=== PATIENT | male | born 1975 | race Caucasian/White ===

== ENCOUNTER 2020-08-01 10:07 | Day surgery (SDC) | payer OTHER ==
[2020-08-01] MEDS ORDERED: BUPIVACAINE 0.25% PF 30 ML VIAL ONE (10:10)
[2020-08-01] MEDS ORDERED: LIDOCAINE 1%-EPI 1:100000 20 ML MDV ONE (10:10)
[2020-08-01] MEDS ORDERED: cefTRIAXone 2 GM VIAL ONE ×2 (10:11→10:12)
[2020-08-01] MEDS ORDERED: SCOPOLAMINE PATCH TOP ONE (10:11)
[2020-08-01] MEDS ORDERED: LACTATED RINGERS 1,000 ML IV ONE ×2 (10:22→15:43)
--- NOTE | 2020-08-01 11:13 | ANESTHESIA ---
Pre-Anesthesia VS, & Labs - Diagnosis AC Joint arthritis, Right carpal tunnel syndrome - Procedure right open distal clavicle excision, right carpal tunnel release Vital Signs: Temp Pulse Resp BP Pulse Ox 36.6 C 62 16 120/79 98 08/01/20 10:22 08/01/20 10:22 08/01/20 10:22 08/01/20 10:22 08/01/20 10:22 Height: 6 ft Weight (kg): 104 kg Body Mass Index: 31.1 BMI Classification: Obese - NPO >8 hours Home Medications and Allergies Home Medications: Ambulatory Orders Naproxen [Naprosyn] 500 mg PO BID PRN 07/29/20 Naproxen [Naprosyn] 500 mg PO BID PRN 07/29/20 Allergies/Adverse Reactions: Allergies Allergy/AdvReac Type Severity Reaction Status Date / Time No Known Drug Allergies Allergy Verified 08/01/20 11:02 Anes History & Medical History - Anesthetic History Anesthesia Complications: reports: Post-Operative Nausea/Vomiting - Medical History Cardiovascular: reports: None Pulmonary: reports: Sleep apnea (does not use cpap) Gastrointestinal: reports: None Urinary: reports: None Neuro: reports: None Musculoskeletal: reports: Other Endocrine/Autoimmune: reports: None Blood Disorders: reports: None Skin: reports: None Smoking Status: Never smoker Psychosocial: reports: Alcohol (Drinks 3-4 times per week.) History of Cancer?: No - Surgical History General: Colonoscopy, EGD Eyes Ears Nose Throat (EENT): Other (septoplasty) Orthopedic: Other Exam General: Alert, Oriented x3, Cooperative, No acute distress Dental: WNL Mouth Openin Fingerbreadth Neck Mobility: Normal Mallampati classification: I, II Thyromental Distance: 4-6 cm Mental/Cognitive Status: Alert/Oriented X3, Normal for patient Plan Anesthesia Type: General, Supraclavicular Block ( right, possible), Other (possible right superficial cervical block) Regional Block: Per Surgeon's request for Post Op pain control Consent for Procedure(s) Verified and Reviewed: Yes Code Status: Attempt Resuscitation ASA classification: 2-Mild systemic disease Is this case an emergency?: No
[2020-08-01] MEDS ORDERED: ONDANSETRON 4 MG/2 ML VIAL IVP PRN ×2 (11:48→15:42)
[2020-08-01] MEDS ORDERED: ATROPINE ABBOJECT 1 MG/10 ML SYRINGE IVP PRN (11:48)
[2020-08-01] MEDS ORDERED: NALOXONE 0.4 MG/ML VIAL IVP PRN (11:48)
[2020-08-01] MEDS ORDERED: METOCLOPRAMIDE 10 MG/2 ML VIAL IVP PRN (11:48)
[2020-08-01] MEDS ORDERED: ePHEDrine 50 MG/ML VIAL IVP PRN (11:48)
[2020-08-01] MEDS ORDERED: LACTATED RINGERS 1,000 ML IV SCH (12:00)
[2020-08-01] MEDS ORDERED: cefTRIAXone 2 GM in SODIUM CHLORIDE 0.9% MINIBAG 100 ML IV ONE (13:30)
[2020-08-01] MEDS ORDERED: BUPIVACAINE 0.25% PF 30 ML VIAL SUBQ ONE ×2 (13:50)
[2020-08-01] MEDS ORDERED: LIDOCAINE 1%-EPI 1:100000 20 ML MDV SUBQ ONE ×2 (13:50)
[2020-08-01] MEDS ORDERED: oxyCODONE 5 MG TABLET PO PRN (15:42)
[2020-08-01] MEDS: fentaNYL 100 MCG/2 ML VIAL IVP PRN ×5 (15:47→16:19)
[2020-08-01] MEDS ORDERED: fentaNYL 100 MCG/2 ML VIAL ONE ×2 (15:55→16:21)
--- NOTE | 2020-08-01 16:03 | OPERATIVE REPORT ---
Operative Report - General Procedure Date: 08/01/20 - Other Other Information/Narrative: Date of Procedure: 01 August 2020 Planned Procedure: Right open carpal tunnel release, right open distal clavicle excision Pre-op diagnosis: Right carpal tunnel syndrome, right AC joint arthritis Procedure performed: Right open carpal tunnel release, right open distal clavicle excision Post-op diagnosis: Right carpal tunnel syndrome, right AC joint arthritis Primary Surgeon: RAAD REYES Secondary Surgeon: Anesthesia: General with regional block EBL: 65ml total (50 distal clavicle, 15 carpal tunnel) Tourniquet: 12 minutes, right arm at 250mmHg. Specimen(s) Information: None Complication(s): None Condition: Stable to recovery Indications for Surgery: The patient is a 45-year-old [id number] male with bilateral hand numbness and tingling in a median nerve distribution. Clinical exam and EMG were consistent with bilateral carpal tunnel syndrome. He had concomitant focal pain to the right acromioclavicular joint, MRI demonstrated significant periarticular increased T2 signal and edema consistent with arthritic changes. Radiographs demonstrated some osteolysis and widening of the distal clavicle. They had failed non-operartive management and desired surgical intervention. Risks of surgery were discussed to include bleeding, infection, postoperative stiffness, damage to nerves (including the median nerve and recurrent motor branch to the thenar musculature), vessels, tendons, ligaments, anesthesia complications to include medication side effects and allergic reactions, blood clot, stroke, heart attack and even . After a discussion, they wished to proceed. Findings: Thickened transverse carpal ligament, hypertrophic distal clavicle. Descriptions of Procedure: The patient was met in the Preoperative Holding Area, at which time preoperative paperwork was confirmed. The right volar wrist and right distal clavicle was signed. Anesthesia met with the patient and performed regional anesthesia in preparation for the distal clavicle excision. The patient was then brought to Main Operating Room, placed supine on the Operating Room table, at which time pre procedure timeout was conducted to confirm correct patient, correct extremi ty and correct procedure and also to confirm presence and sterility of all required equipment and to confirm that antibiotics were being administered in the form of 2g of intravenous Rocephin. After this was confirmed, general anesthesia was induced. The operative extremity was then prepped and draped in the normal sterile fashion after a well-padded tourniquet was placed on the proximal arm. A final timeout was conducted to confirm the correct patient, correct extremity and correct procedure and to confirm that antibiotics had been administered within 30 minutes of incision time. The operative extremity was then exsanguinated with an Esmarch bandage and tourniquet inflated to 250mmHg. Kaminski's cardinal line, and the proximal projection of the radial border of the fourth digit, the hook of hamate and pisiform were marked on the hand. A 3cm longitudinal incision was made with a #15 blade through skin and subcutaneous tissue. Dissection was further carried out with tenotomy scissors. Small crossing vessels were coagulated with bipolar electrocautery, the palmar fascia was exposed, and split longitudinally in line with its fibers, the fat was retracted ulnarly, and the transverse carpal ligament was exposed. A 15 blade was used to make a small incision in the transverse carpal ligament, and then a small mosquito clamp was introduced directly deep to the ligament above the contents of the carpal tunnel to gently free off any adhesions between the deep surface of the transverse carpal ligament and the median nerve. Dissection was carried distally under direct visualization, releasing the transverse carpal ligament until the palmar fat was was visualized. A [place] was passed to ensure that there were no remaining tight bands constricting the nerve. Attention was then turned proximally, and a [place] elevator was passed deep to the transverse carpal ligament and antebrachial fascia, and these were incised in line with the nerve approximately 2 cm proximal to the distal wrist crease. This was performed under direct visualization. Again [place] examination of the proximal extent of the release was performed to ensure no tight bands or constrictive points remained over the nerve. Satisfied that the carpal tunnel had been completely released, the wound was irrigated, and the tourniquet was let down. Pressure was held on the incision for approximately 5 minutes, and bleeding points were then cauterized with bipolar electrocautery. After ensuring good hemostasis, the wound was again irrigated and then closed using 4-0 nylon in interrupted horizontal mattress fashion. 10 mL of quarter percent Marcaine plain, was injected into the yola-incisional soft tissues. The wound was then dressed with Xeroform, 2 x 2 gauze and a Tegaderm. The drapes were taken down, and the patient was placed in a modified beach chair position. The right upper extremity was then prepped and draped in usual sterile fashion for shoulder surgery. A stockinette was placed over the distal arm and hand. Following prepping and draping, the acromion, clavicle and planned incision (approximately 4 cm in line with the center of the clavicle) were marked out on the skin using surgical marker. Ioban was placed over the surgical site. A surgical timeout was again conducted to confirm the correct patient extremity procedure and availability of equipment. Once this was comple johanna, the surgical site was infiltrated with 5 mL of 1% lidocaine with epinephrine to assist with hemostasis. The incision was made sharply through the skin and subcutaneous tissues with a 10 blade, followed by bovie electrocautery. Metzenbaum scissors were used to develop anterior and posterior flaps at the level of the fascia. A spinal needle confirmed location of the joint. Bovie electrocautery was used to incise through the fascial layer onto the surface of the clavicle, and then a manuel elevator was used to sub periosteally elevate the tissue anteiorly and posteriorly. Baby Hohmann retractors were placed around the distal clavicle. The degenerated intra-articular disc was removed using a rongeur. The joint space was defined using a rongeur. The Bovie was used to mi out the planned resection on the distal clavicle, and then an oscillating saw was used to excise a 4mm slice of bone from the distal clavicle. Rongeurs were further used to remove any remaining disc material and to contour the bone. I placed my finger into the improved joint space and took the arm through range of motion to include include full forward flexion, abduction and cross body adduction. There was some slight pinching in the ABER position, so the baby Hohmann's were replaced, and the oscillating saw was used to resect an additional 2 mm of bone. Rongeurs and rasp were used to contour the remaining bony ends, and the wound was irrigated. The arm was again taken through full range of motion, with less impingement in the ABER position. The wound was irrigated. The deep fascial/periosteal layer was closed using 0 Vicryl in interrupted [id number] fashion. Following repair of this layer the wound was again irrigated, and the platysma and deep dermal layer was closed using 0 Vicryl in interrupted fashion. The subcutaneous tissues were closed using 2-0 Vicryl in interrupted fashion, and the skin was closed with a running subcuticular 4-0 Monocryl. This incision was reinforced with Mastisol and Steri-Strips. An additional 10 mL of quarter percent Marcaine plain was injected into the yola- incisional soft tissues. Xeroform gauze was placed, followed by 4 x 4 gauze and OpSite dressing. The drapes were taken down, the arm was placed in a shoulder immobilizer. Anesthesia was reversed, he was extubated, awakened and transferred to the recovery room in stable condition. The patient was then awakened from general anesthesia without complication, brought to the Post Anesthesia Care for further recovery. Postoperative Plan: 1. The patient will be discharged from the Same Day Surgery Unit when discharge criteria are met. 2. The patient will use a sling for comfort, with no active motion of the shoulder above the horizon. The dressings will remain in place for 3 days, afterwards they can be taken down. They can begin gentle wrist range of motion on postoperative day #1 or #2 as pain allows. 3. The patient will follow up in 1 to 2-weeks for suture removal. 4. Expect return to full duty in 6-8 weeks, they may have wrist stiffness postoperatively.
[2020-08-01] MEDS ORDERED: oxyCODONE 5 MG TABLET ONE (16:50)
[2020-08-01 17:02] VITALS: BP 114/74
--- NOTE | 2020-08-01 17:25 | ANESTHESIA POST OP EVALUATION ---
Anesthesia Post Eval - Post Anesthesia Eval Vitals: Last Vital Signs Temp 36.2 C L 08/01/20 16:25 Pulse 76 08/01/20 17:00 Resp 22 08/01/20 17:00 BP 114/74 08/01/20 17:00 Pulse Ox 97 08/01/20 17:00 CV Function Including HR & BP: positive: Stable Pain Control: positive: Satisfactory Nausea & Vomiting: positive: Negative Mental Status: positive: Baseline Respiratory Status: Airway Patent Hydration Status: Satisfactory Anesthesia Complications: positive: None
== END 2020-08-01 10:08 | disposition home or self-care (01) ==
LOC: SDS 10:07
PROVIDERS: ATTEND Orthopaedic Surgery
DX: M19.011 Primary osteoarthritis, right shoulder (principal); M89.511 Osteolysis, right shoulder; G56.01 Carpal tunnel syndrome, right upper limb; G47.30 Sleep apnea, unspecified; Z87.891 Personal history of nicotine dependence

== ENCOUNTER 2020-08-26 06:31 | Day surgery (SDC) | payer OTHER ==
[2020-08-26] MEDS ORDERED: CEFAZOLIN SODIUM IN 0.9 % NACL 2 GM/100 ML BAG IV ONE (06:46)
[2020-08-26] MEDS ORDERED: SCOPOLAMINE PATCH TOP ONE (06:46)
[2020-08-26] MEDS ORDERED: LACTATED RINGERS 1,000 ML IV ONE ×2 (07:13→13:19)
[2020-08-26] MEDS ORDERED: LIDOCAINE 1%-EPI 1:100000 20 ML MDV ONE (07:41)
[2020-08-26] MEDS ORDERED: EPINEPHrine 1 MG/ML AMP ONE (07:41)
[2020-08-26] MEDS ORDERED: BUPIVACAINE 0.25% PF 30 ML VIAL ONE (07:42)
[2020-08-26] MEDS ORDERED: PROPOFOL 200 MG/20 ML VIAL IVP ONE (08:15)
[2020-08-26] MEDS ORDERED: MIDAZOLAM 2 MG/2 ML VIAL IVP ONE (08:15)
[2020-08-26] MEDS ORDERED: fentaNYL 100 MCG/2 ML VIAL IVP ONE (08:15)
[2020-08-26] MEDS ORDERED: ROCURONIUM 50 MG/5 ML VIAL IVP ONE (08:15)
[2020-08-26] MEDS ORDERED: DEXAMETHASONE 4 MG/ML VIAL IVP ONE (08:15)
[2020-08-26] MEDS ORDERED: ONDANSETRON 4 MG/2 ML VIAL IVP ONE (08:15)
[2020-08-26] MEDS ORDERED: LIDOCAINE-MPF 2% 5 ML VIAL IM ONE (08:15)
[2020-08-26] MEDS ORDERED: BUPIVACAINE 0.5%-EPI 1:200000 PF 30 ML VIAL ONE (08:15)
[2020-08-26] MEDS ORDERED: cefTRIAXone 2 GM VIAL ONE (09:27)
[2020-08-26] MEDS ORDERED: BUPIVACAINE 0.25% PF 30 ML VIAL SUBQ ONE ×2 (09:33→09:40)
[2020-08-26] MEDS ORDERED: LIDOCAINE 1%-EPI 1:100000 30 ML MDV SUBQ ONE ×2 (09:33)
[2020-08-26] MEDS ORDERED: ONDANSETRON 4 MG/2 ML VIAL IVP PRN ×2 (11:00→13:18)
[2020-08-26] MEDS ORDERED: KETOROLAC 15 MG/ML VIAL IVP ONE (11:00)
[2020-08-26] MEDS ORDERED: MORPHINE 2 MG/ML CARPUJECT IVP PRN (11:00)
[2020-08-26] MEDS ORDERED: LACTATED RINGERS 1,000 ML IV SCH (11:00)
[2020-08-26] MEDS ORDERED: METOCLOPRAMIDE 10 MG/2 ML VIAL IVP PRN (11:00)
[2020-08-26] MEDS ORDERED: ACETAMINOPHEN 1,000 MG/100 ML 100 ML IV ONE (11:00)
[2020-08-26] MEDS ORDERED: ePHEDrine 50 MG/ML VIAL IVP PRN (11:00)
[2020-08-26] MEDS ORDERED: ATROPINE ABBOJECT 1 MG/10 ML SYRINGE IVP PRN (11:00)
[2020-08-26] MEDS ORDERED: fentaNYL 100 MCG/2 ML VIAL IVP PRN (11:00)
[2020-08-26] MEDS ORDERED: NALOXONE 0.4 MG/ML VIAL IVP PRN (11:00)
[2020-08-26] MEDS ORDERED: HYDROmorphone 0.5 MG/0.5 ML SYRINGE IVP PRN (11:00)
--- NOTE | 2020-08-26 11:00 | ANESTHESIA ---
Pre-Anesthesia VS, & Labs - Diagnosis Left shoulder pain, carpal tunnel syndrome - Procedure left shoulder arthroscopy and carpal tunnel release Vital Signs: Temp Pulse Resp BP Pulse Ox 36 C L 61 16 121/77 98 08/26/20 06:45 08/26/20 06:45 08/26/20 06:45 08/26/20 06:45 08/26/20 06:45 Height: 6 ft Weight (kg): 104.33 kg Body Mass Index: 31.1 BMI Classification: Obese - NPO >8 hours Home Medications and Allergies Home Medications: Ambulatory Orders Escitalopram [Lexapro] 10 mg PO DAILY 08/21/20 Naproxen [Naprosyn] 500 mg PO BID PRN 07/29/20 Escitalopram [Lexapro] 10 mg PO DAILY 08/21/20 Allergies/Adverse Reactions: Allergies Allergy/AdvReac Type Severity Reaction Status Date / Time No Known Drug Allergies Allergy Verified 08/21/20 12:20 Anes History & Medical History - Anesthetic History Anesthesia Complications: reports: No previous complications Family history of Anesthesia Complications: Denies Family history of Malignant Hyperthermia: Denies - Medical History Cardiovascular: reports: None Pulmonary: reports: CPAP use Gastrointestinal: reports: None Urinary: reports: None Neuro: reports: None Musculoskeletal: reports: Other Endocrine/Autoimmune: reports: None Blood Disorders: reports: None Skin: reports: None Smoking Status: Never smoker - Surgical History General: Colonoscopy, EGD Eyes Ears Nose Throat (EENT): Other Orthopedic: Other Exam General: Alert Dental: WNL Mouth Opening: Greater than 4 Fingerbreadths Neck Mobility: Normal Mallampati classification: II Respiratory: Lungs clear, Normal breath sounds, No respiratory distress, No accessory muscle use Cardiovascular: Regular rate, Normal S1, Normal S2, No murmurs Plan Anesthesia Type: General, Interscalene Block Regional Block: Per Surgeon's request for Post Op pain control Consent for Procedure(s) Verified and Reviewed: Yes Code Status: Attempt Resuscitation ASA classification: 2-Mild systemic disease Is this case an emergency?: No
[2020-08-26] MEDS ORDERED: oxyCODONE 5 MG TABLET PO PRN (13:18)
--- NOTE | 2020-08-26 13:43 | ANESTHESIA POST OP EVALUATION ---
Anesthesia Post Eval - Post Anesthesia Eval Vitals: Last Vital Signs Temp 36.8 C 08/26/20 13:40 Pulse 78 08/26/20 13:40 Resp 16 08/26/20 13:40 BP 126/82 H 08/26/20 13:40 Pulse Ox 96 08/26/20 13:40 CV Function Including HR & BP: positive: Stable Pain Control: positive: Satisfactory Nausea & Vomiting: positive: Negative Mental Status: positive: Baseline Respiratory Status: Airway Patent Hydration Status: Satisfactory Anesthesia Complications: positive: None
--- NOTE | 2020-08-26 13:59 | OPERATIVE REPORT ---
Operative Report - General Procedure Date: 08/26/20 - Procedure Note Estimated Blood Loss (mL): 25 - Other Other Information/Narrative: Date of Procedure: 26 August 2020 Planned Procedure: Left open carpal tunnel release, left shoulder arthroscopy, subacromial decompression, open distal clavicle excision, rotator cuff repair versus debridement Pre-op diagnosis: Left carpal tunnel syndrome, left acromioclavicular joint arthritis, left shoulder impingement and rotator cuff tendinitis Procedure performed: Left open carpal tunnel release, left arthroscopic subacromial decompression, left open distal clavicle excision. Post-op diagnosis: Left carpal tunnel syndrome, left subacromial bursitis, left acromioclavicular joint arthritis Primary Surgeon: RAAD REYES Secondary Surgeon: Cyndee Anesthesia: General with regional block EBL: 25 ml, combined Tourniquet: 12 minutes, left upper arm at 250mmHg for open carpal tunnel release Specimen(s) Information: None Complication(s): I was unable to arthroscopically access the left glenohumeral joint. Attempt was made to insufflate the joint with 20 cc of arthroscopic fluid using an 18- gauge spinal needle. The arm was positioned and repositioned several times in an attempt to distract the humeral head and tension the posterior capsule, however the scope trocar continued to deflect superiorly into the subacromial space. After several attempts, the decision was made to abort this portion of the procedure, and a subacromial decompression was completed using anterior lateral and posterior portals. Condition: Stable to recovery Indications for Surgery: The patient is a 45-year-old right hand dominant male with a 1 to 2-year history of bilateral hand numbness in the median nerve distribution. Clinical exam and EMG consistent with bilateral carpal tunnel syndrome. Additionally, he had left shoulder pain, centered mainly at the acromioclavicular joint although he also had some slightly more lateral pain near the rotator cuff insertion. MRI of the left shoulder demonstrated some insertional cuff tendinitis as well as significant AC joint arthritis. He had recently undergone a right open carpal tunnel release and right open distal clavicle excision. He desired similar treatment on the left, the recommendation was to complete those procedures as well as a shoulder arthroscopy and subacromial decompression to address any bursitis or cuff tendinitis that may be contributing to his symptoms. Overall, the had failed non-operartive management and desired surgical intervention. Risks of surgery were discussed to include bleeding, infection, postoperative stiffness, damage to nerves (including the median nerve and recurrent motor branch to the thenar musculature), vessels, tendons, ligaments, anesthesia complications to include medication side effects and allergic reactions, blood clot, stroke, heart attack and even . We discussed the expected recovery timeline for multiple options. After a discussion, they wished to proceed. Findings: Thickened transverse carpal ligament, significant subacromial bursitis, acromioclavicular joint arthritis. Descriptions of Procedure: The patient was met in the Preoperative Holding Area, at which time preoperative paperwork was confirmed. The left hackett and volar wrist was signed. Patient met with anesthesia and a regional block was placed. The patient was then brought to Main Operating Room, placed supine on the Operating Room table. General anesthesia was induced. The operative extremity was then prepped and draped over a hand table in the normal sterile fashion after a well-padded gen rniquet was placed on the proximal arm. A final timeout was conducted to confirm the correct patient, correct extremity and correct procedure and to confirm that antibiotics had been administered within 30 minutes of incision time. The operative extremity was then exsanguinated with an Esmarch bandage and tourniquet inflated to 250mmHg. Kaminski's cardinal line, and the proximal projection of the radial border of the fourth digit/ulnar border of the flexed fourth digit and and the hook of hamate marked on the hand. A 3cm longitudinal incision was made with a #15 blade through skin and subcutaneous tissue. Small crossing vessels were coagulated with bipolar electrocautery, the palmar fascia was exposed, and split longitudinally in line with its fibers, the fat was retracted ulnarly, and the transverse carpal ligament was exposed. A 15 blade was used to make a small incision in the transverse carpal ligament, and then a small mosquito clamp was introduced directly deep to the ligament above the contents of the carpal tunnel to gently free off any adhesions between the deep surface of the transverse carpal ligament and the median nerve. Dissection was carried distally under direct visualization, releasing the transverse carpal ligament until the palmar fat was was visualized. Saint Johns examination was performed to ensure that there were no remaining tight bands constricting the nerve. Attention was then turned proximally, and a Saint Johns elevator was passed deep to the transverse carpal ligament and antebrachial fascia, and these were incised in line with the nerve approximately 2 cm proximal to the distal wrist crease. Again freer examination of the proximal extent of the release was performed to ensure no tight bands or constrictive points remained over the nerve. Satisfied that the carpal tunnel had been completely released, the wound was irrigated, and the tourniquet was let down. Pressure was held on the incision for approximately 5 minutes, and bleeding points were then cauterized with bipolar electrocautery. After ensuring good hemostasis, the wound was again irrigated and then closed using 4-0 Nylon in interrupted horizontal mattress fashion. 10 mL of quarter percent Marcaine plain, was injected into the yola-incisional soft tissues. The wound was then dressed with Xeroform, 4 x 4 gauze and a tegaderm. A temporary coban dressing was applied. The drapes were then taken down maintaining sterility of the back table. The patient was repositioned in the beachchair position, taking care to pad all bony prominences and ensure that the head and neck were in neutral position. The left shoulder was then prepped and draped in the usual fashion for beachchair arthroscopy. The arm was placed in a Trimano arm hackett. The scapular spine, acromion, distal clavicle, coracoid and AC joint were marked on the skin with indelible marker. Anterior-posterior shucking maneuver was used to establish the soft spot posteriorly. This measured approximately 2 cm medial to the corner of the acromion and approximately 2 cm inferior to the posterior border of this scapular spine. The scope trocar was introduced through this incision, and used to palpate the humeral head and glenoid, and the scope trocar was advanced anteriorly towards the tip of the coracoid process. Placement of the camera revealed that we were in the subacromial space. The scope and trocar were removed, placement was reattempted, with similar results. The arm was repositioned, and a bump was placed into the axilla to aid with humeral head distraction away from the glenoid. Access was again attempted several times and unsuccessful. An 18-gauge spinal needle was used to insufflate the joint with approximately 20 cc of arthroscopic fluid. The scope trocar was again passed, and was again found to be located in the subacromial space. At this point the decision was made to abort intra-articular access and proceed with a subacromial decompression. An anterior portal was established by passing the scope trocar from the posterior portal along the undersurface of the acromion, until the trocar could be felt beyond the anterior edge of the acromion and seen to tent the skin. An 11 blade was used to make a small skin incision, and the trocar was advanced through this opening. The crystal cannula was then brought over the scope trocar and the arthroscope was inserted. The sucker shaver was inserted anteriorly, and the arthroscope was backed up until the shaver and arthroscope in the subacromial space. I then systemically debrided the bursa using a sucker shaver and radiofrequency ablation wand. A direct lateral incision was made and the bursectomy and decompression was completed through the lateral incision. All soft tissue was debrided from the underside of the acromion. The rotator cuff was then evaluated and palpated. The cuff overall from the bursal side appeared intact, with thickened layers of bursal tissue overlying it. Final images were taken. We next turned our attention to the open distal clavicle excision. A 5 cm incision was made in line with the clavicle, centered over the acromioclavicular joint. Electrocautery was used to obtain hemostasis. Full-thickness skin flaps were made at the level of the fascia/joint capsule. A full-thickness longitudinal was made longitudinally to open the acromioclavicular joint. Electrocautery was used to dissect the joint capsule from the bony surfaces. 2 Homans were placed around the distal clavicle. A rongeur was used to debride the intra-articular disc. An 8 mm resection was measured and performed with a sagittal saw. Care was taken to ensure this cut was parallel to the joint surface. All sharp bony edges were rounded. A finger was placed with into the defect and the arm was taken through range of motion without any impingement in the joint, there was some tightness posteriorly between the posterior lateral corner of the clavicle and the scapular spine, so the home and was replaced and this area was contoured using sagittal saw. All sharp bony edges were then rounded again using the Rongeurs and rasps. The joint was then irrigated copiously. A watertight capsular and fascial closure was performed with 0 Vicryl. The deep subcutaneous tissue was closed using interrupted 2-0 Vicryl, the subcutaneous tissue was closed using interrupted 2-0 Vicryl, and the skin was closed with a running subcuticular 3-0 Monocryl. The portal incisions were closed using buried 3-0 Monocryl. Mastisol and Steri-Strips were placed. The incisions were injected with a total of 20 mL of 1% lidocaine with epinephrine. Xeroform 4 x 4 gauze and ABDs were placed and secured in place with tape. The Coban was removed from the carpal tunnel incision, Webril and a mildly compressive Solo wrap were placed. The arm was placed in a sling. Anesthesia was reversed, the patient was [facility], and then brought to the PACU in stable condition. Postoperative Plan: 1. The patient will be discharged from the Same Day Surgery Unit when discharge criteria are met. 2. The patient will remain in a soft dressing and sling for comfort until follow-up. They can begin gentle wrist and shoulder range of motion on postoperative day #1 or #2 as pain allows. 3. The patient will follow up in 1 to 2 weeks for suture removal and advancement of activities and initiation of physical therapy 4. Expect return to full duty in 6-8 weeks, they may have wrist and shoulder stiffness postoperatively. Should his shoulder be symptomatic following rehabilitation, repeat arthroscopy in the lateral position could be considered to facilitate better distraction of the glenohumeral joint.
[2020-08-26 14:06] VITALS: BP 109/77
== END 2020-08-26 06:32 | disposition home or self-care (01) ==
LOC: SDS 06:31
PROVIDERS: ATTEND Orthopaedic Surgery
DX: M19.012 Primary osteoarthritis, left shoulder (principal); M75.52 Bursitis of left shoulder; G56.02 Carpal tunnel syndrome, left upper limb; G47.30 Sleep apnea, unspecified